=== PATIENT | female | born 1990 | race Caucasian/White ===

== ENCOUNTER 2016-03-22 17:51 | Emergency (ER) | payer OTHER ==
--- NOTE | 2016-03-22 19:03 | REP ---
AP, LATERAL LEFT ELBOW, TWO VIEWS: HISTORY: Trauma. There is no acute fracture or dislocation. The joint space is normal in appearance. IMPRESSION: There is no acute fracture or dislocation. Signed by Sumeet Ye MD 03/22/2016 07:08 P
--- NOTE | 2016-03-22 19:04 | REP ---
LEFT WRIST, FOUR VIEWS: HISTORY: Trauma. There is no acute fracture or dislocation. The joint spaces are normal in appearance. IMPRESSION: There is no acute fracture or dislocation. Signed by Sumeet Ye MD 03/22/2016 07:08 P
[2016-03-22] MEDS ORDERED: IBUPROFEN 600 MG TAB As Ordered ONE (19:14)
--- NOTE | 2016-03-22 19:39 | EDDOCDS ---
Nurse's Notes [facility] Name: Jenni Douglas Age: 26 yrs Sex: Female : 1990 Arrival Date: 03/22/2016 Time: 17:51 Bed 5 Private MD: Other - Complete Info On Cds Diagnosis: Unspecified sprain of left wrist Presentation: 03/22 17:55 Presenting complaint: Patient states: that she fell in the shower tonight and injured ms18 her L wrist. Adult Sepsis Screening: The patient does not have new or worsening altered mentation. Patient's respiratory rate is less than 22. Systolic blood pressure is greater than 100. Patient has a qSOFA score of 0- Negative Sepsis Screen. Suicide/Homicide risk assessment- the patient denies having any suicidal and/or homicidal ideations and does not present with any other emotional, behavioral or mental health complaints. Status: The patient is a dependent. Transition of care: patient was not received from another setting of care. 17:55 Acuity: GEOFF Level 4 ms18 17:55 Method Of Arrival: Walkin/Carried/Asstd ms18 Triage Assessment: 17:59 General: Appears in no apparent distress, comfortable, Behavior is appropriate for age, ms18 cooperative. Pain: Location: palmar aspect of left wrist Pain currently is 8 out of 10 on a pain scale. HIV screening NA for this visit Offered previously. Neurological: Level of Consciousness is awake, alert, obeys commands, Oriented to person, place, time. Respiratory: Airway is patent Respiratory effort is even, unlabored. Derm: Skin is pink, warm & dry. normal, Bruising that is bright red, dark purple, on palmar aspect of left wrist. Musculoskeletal: Range of motion limited in left wrist Swelling present in palmar aspect of left wrist. INSURANCE COMPLIANCE ANALYST: 17:59 LMP 03/05/2016 ms18 Historical: - Allergies: no known allergies; - Home Meds: 1. biotin oral oral daily 2. Vitamin Oral tab 1 tab once daily 3. multivitamin Oral cap daily 4. tramadol 50 mg Oral tab as needed 5. ibuprofen 800 mg Oral tab as needed - PMHx: Endometriosis; - PSHx: Appendectomy; Laparoscopy; Endoscopy, Upper; Endoscopy, Lower; - Social history: Smoking status: Patient states was never smoker of tobacco. No barriers to communication noted, The patient speaks fluent Chinese. - Family history: Not pertinent. - : The pt / caregiver states he / she is not on anticoagulants. Home medication list is obtained from the patient. - Exposure Risk Screening:: None identified. Screenin:25 Screening information is obtained from the patient. Fall risk: No risks identified. cf2 Assistance ADL's: requires no assistance with activities of daily living. Abuse/DV Screen: The patient / caregiver reports he/she is: not in a situation that causes fear, pain or injury. Nutritional screening: No deficits noted. Advance Directives: Further advance directive information is declined. home support is adequate. Assessment: 19:25 Pain: Location: left arm. Neurological: No deficits noted. EENT: No deficits noted. cf2 Musculoskeletal: Reports pain in left arm Pain is 8 out of 10 on a pain scale. Denies numbness. Injury Description: Bruise sustained to left wrist pt fell from standing. Vital Signs: 17:52 BP 133 / 86; Pulse 77; Resp 18 S; Temp 96.2(O); Pulse Ox 100% on R/A; Weight 57.15 kg gr2 (R); Height 5 ft. 2 in. (157.48 cm) (R); Pain 8/10; 17:52 Body Mass Index 23.05 (57.15 kg, 157.48 cm) gr2 Vitals: 17:52 Log In Time: March 22, 2016 at 17:52. gr2 ED Course: 17:52 Patient visited by Angelina Dinh. gr2 17:52 Other - Complete Info On Cds is Private Physician. gr2 17:52 Patient moved to Waiting gr2 17:54 Patient visited by Angelina Dinh. gr2 17:54 Patient moved to Pre RCE gr2 17:56 Triage Initiated ms18 18:08 Rio Strauss FNP is [facility]. ke 18:08 Patient moved to 5 mlb1 18:09 Patient visited by Rio Strauss FNP. ke 18:09 Patient visited by Rio Strauss FNP. ke 18:33 Patient visited by Rio Strauss FNP. ke 18:41 Patient name changed from Asmita\S\\S\Brown\S\ to Ginalynn\S\ \S\Brown. EDMS 18:43 [facility] [place] [facility] Payment Agreement was scanned into [employer] and attached to record. gb 19:07 Elbow, (AP\E\Lat) Returned. EDMS 19:07 Wrist, Complete Returned. EDMS 19:13 Yumiko Danielle,KLAUDIA is Primary Nurse. cf2 19:13 Patient visited by Yumiko Danielle RN. cf2 19:25 Patient visited by Yumiko Danielle RN. cf2 19:25 The patient / caregiver is instructed regarding the plan of care and ED course. Patient cf2 has correct armband on for positive identification. Placed in gown. Bed in low position. Call light in reach. Side rails up X 1. Side rails up X2. Property :Personal belongings accompany Pt. Door closed. Noise minimized. Visitors limited. Lights dimmed. Moved to private room. Cool cloth applied. Ice pack to injury. PO fluids given. Verbal reassurance given. Warm blanket given. wrist splint. 19:25 No IV's were initiated during this patient's visit. No procedures done that require cf2 assistance. 19:38 Michael Gomes DO is Attending Physician. cf2 Administered Medications: 19:13 Drug: Ibuprofen 600 mg [ibuprofen 600 mg tablet (1 tabs)] Route: PO; cf2 19:38 Follow up: Response: Pain is decreased cf2 Order Results: Radiology Order: Wrist, Complete Test: Wrist, Complete REASON FOR EXAMINATION: Trauma; ; LEFT WRIST, FOUR VIEWS:; ; HISTORY: Trauma.; ; There is no acute fracture or dislocation. The joint spaces are normal in; appearance.; ; IMPRESSION:; There is no acute fracture or dislocation.; ; Unreviewed; Radiology Order: Elbow, (AP\E\Lat) Test: Elbow, (AP\E\Lat) REASON FOR EXAMINATION: Trauma; AP, LATERAL LEFT ELBOW, TWO VIEWS:; ; HISTORY: Trauma.; ; There is no acute fracture or dislocation. The joint space is normal in; appearance.; ; IMPRESSION:; There is no acute fracture or dislocation.; ; Unreviewed; Outcome: 18:46 Discharge ordered by Provider. ke 19:25 Discharge Assessment: Patient awake, alert and oriented x 3. No cognitive and/or cf2 functional deficits noted. Patient verbalized understanding of disposition instructions. Patient awake and alert. Oriented to person, place and time. patient administered narcotics - no. The following High Risk Discharge criteria are identified: None. Discharged to home. Condition: good Condition: stable Condition: improved. Discharge instructions given to patient, significant other, Instructed on discharge instructions, follow up and referral plans. medication usage, Demonstrated understanding of instructions, medications, Pt was receptive of discharge instructions/ teaching. Prescriptions given X 1. No special radiology studies were completed. 19:38 Patient left the ED. cf2 Signatures: Dispatcher [employer] EDMS Henny Crocker, Reg Reg gb Rio Strauss, TIRE FINISHER TIRE FINISHER Abrahan Medina RN RN mlb1 Angelina Dinh gr2 Venessa Marcus,RN RN ms18 Yumiko Danielle,RN RN cf2 MTDD
--- NOTE | 2016-03-22 19:39 | EDDOCDS ---
Physician Documentation [facility] Name: Jenni Douglas Age: 26 yrs Sex: Female : 1990 Arrival Date: 03/22/2016 Time: 17:51 Bed 5 Private MD: Other - Complete Info On Cds Disposition: 03/22/16 18:46 Discharged to Home/Self Care. Impression: Unspecified sprain of left wrist. - Condition is Stable. - Discharge Instructions: Elastic Bandage and RICE, Wrist Pain. - Prescriptions for Ibuprofen 600 mg Oral Tablet - take 1 tablet by ORAL route every 6 hours As needed take with food; 30 tablet. - Medication Reconciliation, Work Release Form - 2 day, Local Pharmacy Hours form. - Follow up: Private Physician; When: 4 - 5 days; Reason: Recheck today's complaints, Continuance of care. - Problem is new. - Symptoms are unchanged. Historical: - Allergies: no known allergies; - Home Meds: 1. biotin oral oral daily 2. Vitamin Oral tab 1 tab once daily 3. multivitamin Oral cap daily 4. tramadol 50 mg Oral tab as needed 5. ibuprofen 800 mg Oral tab as needed - PMHx: Endometriosis; - PSHx: Appendectomy; Laparoscopy; Endoscopy, Upper; Endoscopy, Lower; - Social history: Smoking status: Patient states was never smoker of tobacco. No barriers to communication noted, The patient speaks fluent Andorran. - Family history: Not pertinent. - : The pt / caregiver states he / she is not on anticoagulants. Home medication list is obtained from the patient. - Exposure Risk Screening:: None identified. FARM CONTRACTOR: 03/22 17:59 LMP 03/05/2016 ms18 Vital Signs: 17:52 BP 133 / 86; Pulse 77; Resp 18 S; Temp 96.2(O); Pulse Ox 100% on R/A; Weight 57.15 kg / gr2 125.99 lbs (R); Height 5 ft. 2 in. (157.48 cm) (R); Pain 8/10; 17:52 Body Mass Index 23.05 (57.15 kg, 157.48 cm) gr2 MDM: 18:17 Wrist, Complete Ordered. EDMS 18:17 Elbow, (AP\E\Lat) Ordered. EDMS 18:38 Financial registration complete. gb 18:43 [facility] Payment Agreement was scanned into [employer] and attached to record. gb 18:46 Misc. Nursing Order ordered. ke 19:12 Ibuprofen 600 mg PO once ordered. ke Administered Medications: 19:13 Drug: Ibuprofen 600 mg [ibuprofen 600 mg tablet (1 tabs)] Route: PO; cf2 19:38 Follow up: Response: Pain is decreased cf2 Signatures: Dispatcher [employer] EDMS Henny Crocker, Rio Valerio, BRILLIANDEER LOPPER BRILLIANDEER LOPPER Venessa Anderson RN RN ms18 Yumiko Danielle RN RN cf2 The chart was reviewed and I authenticate all verbal orders and agree with the evaluation and treatment provided.Attachments: 18:43 [facility] [place] Payment Agreement gb MTDD
--- NOTE | 2016-03-24 20:39 | EDDOCDS ---
Physician Documentation [facility] Name: Jenni Douglas Age: 26 yrs Sex: Female : 1990 Arrival Date: 03/22/2016 Time: 17:51 Bed 5 Private MD: Other - Complete Info On Cds Disposition: 03/22/16 18:46 Discharged to Home/Self Care. Impression: Unspecified sprain of left wrist. - Condition is Stable. - Discharge Instructions: Elastic Bandage and RICE, Wrist Pain. - Prescriptions for Ibuprofen 600 mg Oral Tablet - take 1 tablet by ORAL route every 6 hours As needed take with food; 30 tablet. - Medication Reconciliation, Work Release Form - 2 day, Local Pharmacy Hours form. - Follow up: Private Physician; When: 4 - 5 days; Reason: Recheck today's complaints, Continuance of care. - Problem is new. - Symptoms are unchanged. Historical: - Allergies: no known allergies; - Home Meds: 1. biotin oral oral daily 2. Vitamin Oral tab 1 tab once daily 3. multivitamin Oral cap daily 4. tramadol 50 mg Oral tab as needed 5. ibuprofen 800 mg Oral tab as needed - PMHx: Endometriosis; - PSHx: Appendectomy; Laparoscopy; Endoscopy, Upper; Endoscopy, Lower; - Social history: Smoking status: Patient states was never smoker of tobacco. No barriers to communication noted, The patient speaks fluent Micronesian. - Family history: Not pertinent. - : The pt / caregiver states he / she is not on anticoagulants. Home medication list is obtained from the patient. - Exposure Risk Screening:: None identified. FOOD HANDLER: 03/22 17:59 LMP 03/05/2016 ms18 Vital Signs: 17:52 BP 133 / 86; Pulse 77; Resp 18 S; Temp 96.2(O); Pulse Ox 100% on R/A; Weight 57.15 kg / gr2 125.99 lbs (R); Height 5 ft. 2 in. (157.48 cm) (R); Pain 8/10; 17:52 Body Mass Index 23.05 (57.15 kg, 157.48 cm) gr2 MDM: 18:17 Wrist, Complete Ordered. EDMS 18:17 Elbow, (AP\E\Lat) Ordered. EDMS 18:38 Financial registration complete. gb 18:43 [facility] Payment Agreement was scanned into [employer] and attached to record. 18:46 Misc. Nursing Order ordered. ke 19:12 Ibuprofen 600 mg PO once ordered. ke 03/23 09:46 T-Sheet-- Draft Copy was scanned into [employer] and attached to record. gb Administered Medications: 03/22 19:13 Drug: Ibuprofen 600 mg [ibuprofen 600 mg tablet (1 tabs)] Route: PO; cf2 19:38 Follow up: Response: Pain is decreased cf2 Signatures: Dispatcher [employer] EDMS Henny Crocker, Reg Reg Rio Strauss, GARMENT FITTER GARMENT FITTER Venessa Anderson RN RN ms18 Yumiko DanielleRN RN cf2 The chart was reviewed and I authenticate all verbal orders and agree with the evaluation and treatment provided.Attachments: 18:43 [facility] Payment Agreement 03/23 09:46 T-Sheet-- Draft Copy Chart Complete MTDD
--- NOTE | 2016-03-24 20:39 | EDDOCDS ---
Nurse's Notes [facility] Name: Jenni Douglas Age: 26 yrs Sex: Female : 1990 Arrival Date: 03/22/2016 Time: 17:51 Bed 5 Private MD: Other - Complete Info On Cds Diagnosis: Unspecified sprain of left wrist Presentation: 03/22 17:55 Presenting complaint: Patient states: that she fell in the shower tonight and injured ms18 her L wrist. Adult Sepsis Screening: The patient does not have new or worsening altered mentation. Patient's respiratory rate is less than 22. Systolic blood pressure is greater than 100. Patient has a qSOFA score of 0- Negative Sepsis Screen. Suicide/Homicide risk assessment- the patient denies having any suicidal and/or homicidal ideations and does not present with any other emotional, behavioral or mental health complaints. Status: The patient is a dependent. Transition of care: patient was not received from another setting of care. 17:55 Acuity: GEOFF Level 4 ms18 17:55 Method Of Arrival: Walkin/Carried/Asstd ms18 Triage Assessment: 17:59 General: Appears in no apparent distress, comfortable, Behavior is appropriate for age, ms18 cooperative. Pain: Location: palmar aspect of left wrist Pain currently is 8 out of 10 on a pain scale. HIV screening NA for this visit Offered previously. Neurological: Level of Consciousness is awake, alert, obeys commands, Oriented to person, place, time. Respiratory: Airway is patent Respiratory effort is even, unlabored. Derm: Skin is pink, warm & dry. normal, Bruising that is bright red, dark purple, on palmar aspect of left wrist. Musculoskeletal: Range of motion limited in left wrist Swelling present in palmar aspect of left wrist. DIRECTOR OF GLOBAL SALES: 17:59 LMP 03/05/2016 ms18 Historical: - Allergies: no known allergies; - Home Meds: 1. biotin oral oral daily 2. Vitamin Oral tab 1 tab once daily 3. multivitamin Oral cap daily 4. tramadol 50 mg Oral tab as needed 5. ibuprofen 800 mg Oral tab as needed - PMHx: Endometriosis; - PSHx: Appendectomy; Laparoscopy; Endoscopy, Upper; Endoscopy, Lower; - Social history: Smoking status: Patient states was never smoker of tobacco. No barriers to communication noted, The patient speaks fluent Lao. - Family history: Not pertinent. - : The pt / caregiver states he / she is not on anticoagulants. Home medication list is obtained from the patient. - Exposure Risk Screening:: None identified. Screenin:25 Screening information is obtained from the patient. Fall risk: No risks identified. cf2 Assistance ADL's: requires no assistance with activities of daily living. Abuse/DV Screen: The patient / caregiver reports he/she is: not in a situation that causes fear, pain or injury. Nutritional screening: No deficits noted. Advance Directives: Further advance directive information is declined. home support is adequate. Assessment: 19:25 Pain: Location: left arm. Neurological: No deficits noted. EENT: No deficits noted. cf2 Musculoskeletal: Reports pain in left arm Pain is 8 out of 10 on a pain scale. Denies numbness. Injury Description: Bruise sustained to left wrist pt fell from standing. Vital Signs: 17:52 BP 133 / 86; Pulse 77; Resp 18 S; Temp 96.2(O); Pulse Ox 100% on R/A; Weight 57.15 kg gr2 (R); Height 5 ft. 2 in. (157.48 cm) (R); Pain 8/10; 17:52 Body Mass Index 23.05 (57.15 kg, 157.48 cm) gr2 Vitals: 17:52 Log In Time: March 22, 2016 at 17:52. gr2 ED Course: 17:52 Patient visited by Angelina Dinh. gr2 17:52 Other - Complete Info On Cds is Private Physician. gr2 17:52 Patient moved to Waiting gr2 17:54 Patient visited by Angelina Dinh. gr2 17:54 Patient moved to Pre RCE gr2 17:56 Triage Initiated ms18 18:08 Rio Strauss FNP is [facility]. ke 18:08 Patient moved to 5 mlb1 18:09 Patient visited by Rio Strauss FNP. ke 18:09 Patient visited by Rio Strauss FNP. ke 18:33 Patient visited by Rio Strauss FNP. ke 18:41 Patient name changed from Asmita\S\\S\Brown\S\ to Ginalynn\S\ \S\Brown. EDMS 18:43 [facility] was scanned into [employer] and attached to record. gb 19:07 Elbow, (AP\E\Lat) Returned. EDMS 19:07 Wrist, Complete Returned. EDMS 19:13 Yumiko Danielle,RN is Primary Nurse. cf2 19:13 Patient visited by Yumiko Danielle,KLAUDIA. cf2 19:25 Patient visited by Yumiko Danielle,KLAUDIA. cf2 19:25 The patient / caregiver is instructed regarding the plan of care and ED course. Patient cf2 has correct armband on for positive identification. Placed in gown. Bed in low position. Call light in reach. Side rails up X 1. Side rails up X2. Property :Personal belongings accompany Pt. Door closed. Noise minimized. Visitors limited. Lights dimmed. Moved to private room. Cool cloth applied. Ice pack to injury. PO fluids given. Verbal reassurance given. Warm blanket given. wrist splint. 19:25 No IV's were initiated during this patient's visit. No procedures done that require cf2 assistance. 19:38 Michael Gomes DO is Attending Physician. cf2 03/23 09:46 T-Sheet-- Draft Copy was scanned into [employer] and attached to record. gb Administered Medications: 03/22 19:13 Drug: Ibuprofen 600 mg [ibuprofen 600 mg tablet (1 tabs)] Route: PO; cf2 19:38 Follow up: Response: Pain is decreased cf2 Order Results: Radiology Order: Wrist, Complete Test: Wrist, Complete REASON FOR EXAMINATION: Trauma; LEFT WRIST, FOUR VIEWS:; ; HISTORY: Trauma.; ; There is no acute fracture or dislocation. The joint spaces are normal in; appearance.; ; IMPRESSION:; ; There is no acute fracture or dislocation.; ; ; Signed by; Sumeet Ye MD 03/22/2016 07:08 P; Radiology Order: Elbow, (AP\E\Lat) Test: Elbow, (AP\E\Lat) REASON FOR EXAMINATION: Trauma; AP, LATERAL LEFT ELBOW, TWO VIEWS:; ; HISTORY: Trauma.; ; There is no acute fracture or dislocation. The joint space is normal in; appearance.; ; IMPRESSION:; ; There is no acute fracture or dislocation.; ; ; Signed by; Sumeet Ye MD 03/22/2016 07:08 P; Outcome: 18:46 Discharge ordered by Provider. pearl 19:25 Discharge Assessment: Patient awake, alert and oriented x 3. No cognitive and/or cf2 functional deficits noted. Patient verbalized understanding of disposition instructions. Patient awake and alert. Oriented to person, place and time. patient administered narcotics - no. The following High Risk Discharge criteria are identified: None. Discharged to home. Condition: good Condition: stable Condition: improved. Discharge instructions given to patient, significant other, Instructed on discharge instructions, follow up and referral plans. medication usage, Demonstrated understanding of instructions, medications, Pt was receptive of discharge instructions/ teaching. Prescriptions given X 1. No special radiology studies were completed. 19:38 Patient left the ED. cf2 Signatures: Dispatcher [employer] EDMS Henny Crocker, Contreras Reg Rio Simms, HEALTH NAVIGATOR HEALTH NAVIGATOR Abrahan Medina, RN RN mlb1 Angelina Dinh gr2 Venessa Marcus,KLAUDIA RN ms18 Yumiko Danielle,RN RN cf2 Chart Complete [facility]
--- NOTE | 2016-03-24 20:39 | EDDOCDS ---
Physician Documentation [facility] Name: Jenni Douglas Age: 26 yrs Sex: Female : 1990 Arrival Date: 03/22/2016 Time: 17:51 Bed 5 Private MD: Other - Complete Info On Cds Disposition: 03/22/16 18:46 Discharged to Home/Self Care. Impression: Unspecified sprain of left wrist. - Condition is Stable. - Discharge Instructions: Elastic Bandage and RICE, Wrist Pain. - Prescriptions for Ibuprofen 600 mg Oral Tablet - take 1 tablet by ORAL route every 6 hours As needed take with food; 30 tablet. - Medication Reconciliation, Work Release Form - 2 day, Local Pharmacy Hours form. - Follow up: Private Physician; When: 4 - 5 days; Reason: Recheck today's complaints, Continuance of care. - Problem is new. - Symptoms are unchanged. Historical: - Allergies: no known allergies; - Home Meds: 1. biotin oral oral daily 2. Vitamin Oral tab 1 tab once daily 3. multivitamin Oral cap daily 4. tramadol 50 mg Oral tab as needed 5. ibuprofen 800 mg Oral tab as needed - PMHx: Endometriosis; - PSHx: Appendectomy; Laparoscopy; Endoscopy, Upper; Endoscopy, Lower; - Social history: Smoking status: Patient states was never smoker of tobacco. No barriers to communication noted, The patient speaks fluent Surinamese. - Family history: Not pertinent. - : The pt / caregiver states he / she is not on anticoagulants. Home medication list is obtained from the patient. - Exposure Risk Screening:: None identified. DRAWSTRING KNOTTER: 03/22 17:59 LMP 03/05/2016 ms18 Vital Signs: 17:52 BP 133 / 86; Pulse 77; Resp 18 S; Temp 96.2(O); Pulse Ox 100% on R/A; Weight 57.15 kg / gr2 125.99 lbs (R); Height 5 ft. 2 in. (157.48 cm) (R); Pain 8/10; 17:52 Body Mass Index 23.05 (57.15 kg, 157.48 cm) gr2 MDM: 18:17 Wrist, Complete Ordered. EDMS 18:17 Elbow, (AP\E\Lat) Ordered. EDMS 18:38 Financial registration complete. gb 18:43 [facility] Payment Agreement was scanned into [employer] and attached to record. 18:46 Misc. Nursing Order ordered. ke 19:12 Ibuprofen 600 mg PO once ordered. ke 03/23 09:46 T-Sheet-- Draft Copy was scanned into [employer] and attached to record. gb Administered Medications: 03/22 19:13 Drug: Ibuprofen 600 mg [ibuprofen 600 mg tablet (1 tabs)] Route: PO; cf2 19:38 Follow up: Response: Pain is decreased cf2 Signatures: Dispatcher [employer] EDMS Henny Crocker, Reg Reg Rio Strauss, DIGITAL PROGRAM MANAGER DIGITAL PROGRAM MANAGER Venessa Anderson RN RN ms18 Yumiko DanielleRN RN cf2 The chart was reviewed and I authenticate all verbal orders and agree with the evaluation and treatment provided.Attachments: 18:43 [facility] Payment Agreement 03/23 09:46 T-Sheet-- Draft Copy Chart Complete MTDD
== END 2016-03-22 19:38 | disposition home or self-care (01) ==
LOC: M ED 17:51
DX: S63.502A Unspecified sprain of left wrist, initial encounter (principal); W19.XXXA Unspecified fall, initial encounter; Y92.019 Unspecified place in single-family (private) house as the place of occurrence of the external cause; Y93.9 Activity, unspecified; Y99.9 Unspecified external cause status; Z79.899 Other long term (current) drug therapy

== ENCOUNTER 2016-04-17 10:31 | Emergency (ER) | payer OTHER ==
[~2016-04-17] VITALS: Ht 157.5 cm; Wt 58.1 kg
[2016-04-17] MEDS ORDERED: TRAM1CAP15 PO (11:10)
[2016-04-17] MEDS ORDERED: IBUP600T26 PO (11:10)
[2016-04-17] MEDS ORDERED: DOXY200C PO (11:11)
--- NOTE | 2016-04-17 12:36 | ECGEPIP ---
Stationary ECG Study [facility] - ED Test Date: 2016-04-17 Pat Name: OLIVERIO SALDAÑA Department: Room: - Gender: F Fashion Merchandiser: rn : 1990 Requested By: Matt Bryant Order Number: [id number] Reading MD: Lynne Tobias Measurements Intervals [place] Rate: 59 P: 51 VT: 165 QRS: 76 QRSD: 103 T: 42 QT: 409 QTc: 406 Interpretive Statements SINUS BRADYCARDIA WITH SINUS ARRHYTHMIA INCOMPLETE RIGHT BUNDLE BRANCH BLOCK NO PRIOR FOR COMPARISON Electronically Signed On 04-17-2016 12:35:44 EDT by Lynne Tobias
[2016-04-17] MEDS ORDERED: NS 1,000 ML IV ONE (13:00)
[2016-04-17] MEDS ORDERED: ONDANSETRON 4MG/2ML VIAL (J2405) IV ONE (13:00)
[2016-04-17] MEDS ORDERED: KETOROLAC 30 MG/ML VIAL (J1885) IV ONE (13:00)
[2016-04-17 13:40] LABS: MEAN CORPUSCULAR HEMOGLOBIN 29.1 pg (27.0-33.0); RED CELL DISTRIBUTION WIDTH 12.5 % (11.5-14.5); WHITE BLOOD COUNT 3.8 K/mm3 (4.0-10.0)
[2016-04-17 13:51] LABS: ALBUMIN 4.2 GM/DL (3.2-5.2); ALBUMIN/GLOBULIN RATIO 1.35 (1.00-1.93); ALKALINE PHOSPHATASE 72 U/L (45-117); ALT/SGPT 20 U/L (12-78); ANION GAP 8 MEQ/L (8-16); AST/SGOT 20 U/L (15-37); BILIRUBIN,TOTAL 0.3 MG/DL (0.2-1.0); BLOOD UREA NITROGEN 11 MG/DL (7-18); CALCIUM LEVEL 9.7 MG/DL (8.5-10.1); CARBON DIOXIDE LEVEL 27 MEQ/L (21-32); CHLORIDE LEVEL 105 MEQ/L (98-107); CREATININE FOR GFR 0.74 MG/DL (0.55-1.02); GLOMERULAR FILTRATION RATE > 60.0 (>60); GLUCOSE, FASTING 95 MG/DL (70-105); POTASSIUM SERUM 3.9 MEQ/L (3.5-5.1); SODIUM LEVEL 140 MEQ/L (136-145); TOTAL PROTEIN 7.3 GM/DL (6.4-8.2)
[2016-04-17] MEDS ORDERED: ZOFR4TAB3 PO (14:13)
[2016-04-17] MEDS ORDERED: AUGM875T27 PO (14:14)
[2016-04-17 14:29] VITALS: BP 131/72
[2016-04-17] MEDS ORDERED: AUGMENTIN 875 MG TAB PO ONE (14:30)
== END 2016-04-17 14:50 | disposition home or self-care (01) ==
LOC: M ED 11:36
DX: J01.90 Acute sinusitis, unspecified (principal); R11.2 Nausea with vomiting, unspecified; R00.2 Palpitations; N94.6 Dysmenorrhea, unspecified; N80.9 Endometriosis, unspecified
CPT/HCPCS: 36415; 80053; 81001; 81025; 82550; 82553; 83690; 85027; 87086; 93005; 96374; 96375; 99284; J1885; J2405

== ENCOUNTER 2016-04-26 12:07 | Emergency (ER) | payer OTHER ==
[~2016-04-26] VITALS: Ht 157.5 cm; Wt 57.2 kg
[~2016-04-26 12:07] MED LIST: AUGM875T27 PO; DOXY200C PO; IBUP600T26 PO; TRAM1CAP15 PO; ZOFR4TAB3 PO
[2016-04-26 12:08] VITALS: BP 116/82
[2016-04-26] MEDS ORDERED: LIDOCAINE 1% SDV INJ 30 ML VIAL SC SCH (13:30)
[2016-04-26] MEDS ORDERED: LIDOCAINE 1% MDV 20ML VIAL As Ordered ONE (13:41)
== END 2016-04-26 14:10 | disposition home or self-care (01) ==
LOC: M ED 12:52
DX: S61.432A Puncture wound without foreign body of left hand, initial encounter (principal); W26.0XXA Contact with knife, initial encounter; Y92.234 Operating room of hospital as the place of occurrence of the external cause; Y93.89 Activity, other specified; Y99.0 Civilian activity done for income or pay

== ENCOUNTER 2016-05-26 14:30 | Emergency (ER) | payer OTHER ==
[~2016-05-26] VITALS: Ht 157.5 cm; Wt 57.2 kg
[2016-05-26 14:31] VITALS: BP 133/82
[2016-05-26] MEDS ORDERED: PRENTAB55 PO (14:57)
[2016-05-26] MEDS ORDERED: NS 1,000 ML IV ONE (15:15)
[2016-05-26 15:34] LABS: BASO % 0.5 % (0.0-1.0); EOS # 0.1 K/mm3 (0.0-0.50); LARGE UNSTAINED CELL # 0.1 K/mm3 (0.0-0.4); LARGE UNSTAINED CELL % 1.3 % (0.0-4.0); LYMPH # 2.4 K/mm3 (1.5-6.5); LYMPH % 33.4 % (24.0-44.0); MEAN CORPUSCULAR HEMOGLOBIN 30.5 pg (27.0-33.0); MEAN CORPUSCULAR HGB CONC 33.2 g/dl (32.0-36.5); MEAN CORPUSCULAR VOLUME 91.8 fl (80.0-96.0); MONO # 0.4 K/mm3 (0.0-0.8); MONO % 5.5 % (0.0-5.0); NEUTROPHILS % 58.4 % (36.0-66.0); PLATELET COUNT, AUTOMATED 267 k/mm3 (150-450); RED CELL DISTRIBUTION WIDTH 12.9 % (11.5-14.5); WHITE BLOOD COUNT 6.9 K/mm3 (4.0-10.0)
[2016-05-26] MEDS ORDERED: MORPHINE 2 MG/ML 1ML SYRINGE IV ONE (16:15)
--- NOTE | 2016-05-26 16:24 | REP ---
Obstetric sonography: History: Vaginal bleeding. Findings: Transabdominal and transvaginal scanning are performed. There is a distinct cystic structure in the endometrium with poorly echogenic margin. This may be a gestational sac. There is a questionable yolk sac within this. No embryonic pole is seen. By mean sac size diameter this would correspond with a 1-mero-3-day gestational age estimate. The sac measures 6.2 x 6.6 x 2.3 cm. No free fluid is seen. There is a 2.5 x 2.5 x 2.3 cm cystic area in the left ovary consistent with corpus luteum. Left ovary measures 4.5 x 3.2 x 3.7 cm. Left ovary Doppler flow is normal, resistive index 0.56. Right ovary measures 2.9 x 1.7 x 1.6 cm and is normal appearance. Its resistive index by Doppler normal 0.64. No free fluid. Impression: Sac-like structure in the uterine endometrium with no embryonic pole visible, questionable yolk sac. 5-week size. viability cannot be confirmed. Ectopic cannot be completely excluded. Clinical and possibly sonographic followup should be considered. Signed by Addi Whitten MD 05/26/2016 05:02 P
== END 2016-05-26 17:28 | disposition home or self-care (01) ==
LOC: M ED 15:12
DX: O20.0 Threatened abortion (principal); O99.351 Diseases of the nervous system complicating pregnancy, first trimester; G89.29 Other chronic pain; R10.2 Pelvic and perineal pain; Z79.899 Other long term (current) drug therapy; Z3A.01 Less than 8 weeks gestation of pregnancy

== ENCOUNTER 2016-05-29 11:12 | Emergency (ER) | payer OTHER ==
[~2016-05-29] VITALS: Ht 157.5 cm; Wt 57.2 kg
[~2016-05-29 11:12] MED LIST changes: +PRENTAB55 PO
[2016-05-29 11:13] VITALS: BP 123/80
[2016-05-29] MEDS ORDERED: TYLE500T78 PO (11:23)
== END 2016-05-29 12:55 | disposition home or self-care (01) ==
LOC: M ED 11:41
DX: O26.891 Other specified pregnancy related conditions, first trimester (principal); R10.2 Pelvic and perineal pain; N80.9 Endometriosis, unspecified; O09.291 Supervision of pregnancy with other poor reproductive or obstetric history, first trimester; Z3A.00 Weeks of gestation of pregnancy not specified

== ENCOUNTER 2016-05-31 10:54 | Emergency (ER) | payer OTHER ==
[~2016-05-31] VITALS: Ht 157.5 cm; Wt 57.2 kg
[~2016-05-31 10:54] MED LIST changes: +TYLE500T78 PO
[2016-05-31] MEDS ORDERED: ACETAMINOPHEN 325 MG TAB PO ONE (12:00)
[2016-05-31 12:13] LABS: MEAN CORPUSCULAR HEMOGLOBIN 30.4 pg (27.0-33.0); MEAN CORPUSCULAR VOLUME 92.1 fl (80.0-96.0); RED CELL DISTRIBUTION WIDTH 12.7 % (11.5-14.5); WHITE BLOOD COUNT 5.3 K/mm3 (4.0-10.0)
[2016-05-31 12:36] LABS: ALBUMIN 3.7 GM/DL (3.2-5.2); ALBUMIN/GLOBULIN RATIO 1.16 (1.00-1.93); ALKALINE PHOSPHATASE 69 U/L (45-117); ALT/SGPT 19 U/L (12-78); ANION GAP 5 MEQ/L (8-16); AST/SGOT 16 U/L (15-37); BILIRUBIN,DIRECT 0.1 MG/DL (0.0-0.2); BILIRUBIN,TOTAL 0.6 MG/DL (0.2-1.0); BLOOD UREA NITROGEN 9 MG/DL (7-18); CARBON DIOXIDE LEVEL 28 MEQ/L (21-32); CHLORIDE LEVEL 104 MEQ/L (98-107); CREATININE FOR GFR 0.65 MG/DL (0.55-1.02); GLOMERULAR FILTRATION RATE > 60.0 (>60); GLUCOSE, FASTING 85 MG/DL (70-105); HCG, SERUM QUANTITATIVE 18691 MIU/ML; POTASSIUM SERUM 4.3 MEQ/L (3.5-5.1); SODIUM LEVEL 137 MEQ/L (136-145); TOTAL PROTEIN 6.9 GM/DL (6.4-8.2)
--- NOTE | 2016-05-31 13:20 | REP ---
FIRST TRIMESTER ULTRASOUND: Real-time sonographic evaluation of the gravid uterus is performed utilized transabdominal and endovaginal technique. Uterus measures 8.4 x 4.6 x 6.9 cm. There is a gestational sac in the endometrial canal with a mean sac diameter of 14 mm. A yolk sac is seen within this gestational sac. Estimated gestational age is 6 weeks 2 days. No pole is seen. There is no subchorionic hemorrhage. Right ovary measures 2.9 x 1.0 x 2.2 cm and left ovary 4.5 x 2.3 x 2.3 cm. Cystic structure of the left ovary probably represents a corpus luteum 1.6 cm in diameter. There is no evidence of ovarian torsion with blood flow seen in each ovary with duplex Doppler evaluation. Mild free fluid is seen. IMPRESSION: Early intrauterine gestation 6 weeks 2 days gestational age. No pole is seen. A yolk sac is seen with an intrauterine gestational sac. Suggest followup ultrasound in 1 week to document liability. Left corpus luteum with mild free fluid. No torsion. Signed by Murray Dunham MD 06/01/2016 04:42 P
[2016-05-31 14:18] VITALS: BP 117/72
== END 2016-05-31 14:20 | disposition home or self-care (01) ==
LOC: M ED 13:32
DX: O34.81 Maternal care for other abnormalities of pelvic organs, first trimester (principal); N83.12 Corpus luteum cyst of left ovary; O26.891 Other specified pregnancy related conditions, first trimester; N80.9 Endometriosis, unspecified; Z3A.01 Less than 8 weeks gestation of pregnancy; O99.331 Smoking (tobacco) complicating pregnancy, first trimester; F17.210 Nicotine dependence, cigarettes, uncomplicated

== ENCOUNTER → 2016-06-01 | Emergency (ER) | payer OTHER ==
[~2016-06-01] VITALS: Ht 157.5 cm; Wt 57.2 kg
[2016-06-01 10:47] VITALS: BP 122/79
== END | disposition home or self-care (01) ==
LOC: M ED 13:31
DX: Z00.00 Encounter for general adult medical examination without abnormal findings (principal); Z53.21 Procedure and treatment not carried out due to patient leaving prior to being seen by health care provider
CPT/HCPCS: 36415; 86850; 86901; 99281; J2790

== ENCOUNTER → 2016-06-05 | Outpatient (CLI) | payer OTHER ==
--- NOTE | 2016-06-06 03:47 | REP ---
Clinical: Dating and viability. Technique: Transabdominal and transvaginal first trimester examination with color Doppler evaluation. Findings: Single live early intrauterine is appreciated. Gestational sac with yolk sac and pole identified. [place]-rump length of 5 mm corresponds to 6 weeks 2 days gestational age with estimated date of delivery 01/27/2017. heart rate equals 113 beats per minute. A very small subchorionic hemorrhage along the left lateral aspect of the gestational sac is suggested. Impression: Single live early intrauterine at 6 weeks 2 days gestational age. Complete anatomical assessment should be performed and 19-20 weeks. Mild bradycardia. Small subchorionic hemorrhage suggested. Signed by Mansoor Lopez MD 06/06/2016 03:38 A
== END ==
LOC: M RAD 10:30
PROVIDERS: ATTEND Obstetrics & Gynecology
DX: Z36 Encounter for antenatal screening of mother (principal); Z3A.01 Less than 8 weeks gestation of pregnancy; O76 Abnormality in fetal heart rate and rhythm complicating labor and delivery

== ENCOUNTER → 2016-07-17 | Outpatient (CLI) | payer OTHER ==
[2016-07-17 19:26] LABS: BASO % 0.4 % (0.0-1.0); EOS # 0.1 K/mm3 (0.0-0.50); EOS % 0.9 % (0.0-3.0); LARGE UNSTAINED CELL # 0.1 K/mm3 (0.0-0.4); LARGE UNSTAINED CELL % 1.1 % (0.0-4.0); LYMPH # 2.1 K/mm3 (1.5-6.5); LYMPH % 25.6 % (24.0-44.0); MEAN CORPUSCULAR HGB CONC 34.5 g/dl (32.0-36.5); MEAN CORPUSCULAR VOLUME 92.8 fl (80.0-96.0); MONO # 0.3 K/mm3 (0.0-0.8); MONO % 4.1 % (0.0-5.0); NEUTROPHILS # 5.3 K/mm3 (1.8-7.7); PLATELET COUNT, AUTOMATED 214 k/mm3 (150-450); RED CELL DISTRIBUTION WIDTH 13.2 % (11.5-14.5); WHITE BLOOD COUNT 7.8 K/mm3 (4.0-10.0)
[2016-07-19 09:40] LABS: HBsAg Prenatal NEGATIVE (NEGATIVE)
== END ==
LOC: M LRY 14:22
PROVIDERS: ATTEND Specialist
DX: Z34.81 Encounter for supervision of other normal pregnancy, first trimester (principal); Z36 Encounter for antenatal screening of mother; Z3A.00 Weeks of gestation of pregnancy not specified

== ENCOUNTER → 2016-08-16 | Outpatient (REF) | payer OTHER ==
[~2016-08-16] MED LIST changes: -AUGM875T27 PO; +AUGM875T28 PO; +IBUP-1022 PO; -IBUP600T26 PO
== END ==
LOC: M LAB REF 13:06
PROVIDERS: ATTEND Advanced Practice Midwife
DX: Z34.81 Encounter for supervision of other normal pregnancy, first trimester (principal); Z36 Encounter for antenatal screening of mother; Z3A.00 Weeks of gestation of pregnancy not specified

== ENCOUNTER → 2016-09-22 | Outpatient (CLI) | payer OTHER ==
--- NOTE | 2016-09-22 09:26 | REP ---
OB ULTRASOUND: Real-time sonographic evaluation of the gravid uterus performed. There is a single living intrauterine gestation, estimated gestational age 21 weeks 6 days based on the first ultrasound, EDC 01/27/2017. Today's measurements indicate appropriate growth. BPD 50 mm 21 weeks 1 day, 32nd percentile HC 201 mm 22 weeks 2 days, 63rd percentile AC 166 mm 21 weeks 4 days, 46th percentile FL 35 mm 21 weeks 0 days, 31st percentile HC/AC ratio 1.21 within normal range. Estimated weight 424 grams, 34th percentile. Cervix closed and measures 4.9 cm in length. heart rate 160 beats per minute. SEEN/GROSSLY UNREMARKABLE Lateral ventricles Yes Posterior fossa Yes Upper lip Yes Four-chamber heart Yes LVOT No RVOT No Stomach Yes Cord insertion Yes Three vessel cord Yes Kidneys Yes Bladder Yes Spine Yes position vertex. Placenta anterior and grade 1 with no previa or abruption. Amniotic fluid within normal limits. Signed by Murray Dunham MD 09/22/2016 09:49 A
== END ==
LOC: M RAD 07:34
PROVIDERS: ATTEND Advanced Practice Midwife
DX: Z34.82 Encounter for supervision of other normal pregnancy, second trimester (principal); Z36 Encounter for antenatal screening of mother; Z3A.21 21 weeks gestation of pregnancy

== ENCOUNTER → 2016-10-23 | Outpatient (CLI) | payer OTHER ==
[~2016-10-23] MED LIST changes: +VENTAER
[2016-10-23 15:35] LABS: BASO % 0.3 % (0.0-1.0); EOS % 0.6 % (0.0-3.0); LARGE UNSTAINED CELL # 0.1 K/mm3 (0.0-0.4); LYMPH # 1.7 K/mm3 (1.5-6.5); LYMPH % 24.1 % (24.0-44.0); MEAN CORPUSCULAR HEMOGLOBIN 33.9 pg (27.0-33.0); MEAN CORPUSCULAR HGB CONC 35.3 g/dl (32.0-36.5); MONO # 0.3 K/mm3 (0.0-0.8); MONO % 4.3 % (0.0-5.0); NEUTROPHILS # 4.8 K/mm3 (1.8-7.7); NEUTROPHILS % 69.7 % (36.0-66.0); PLATELET COUNT, AUTOMATED 191 k/mm3 (150-450); RED CELL DISTRIBUTION WIDTH 12.6 % (11.5-14.5); WHITE BLOOD COUNT 6.8 K/mm3 (4.0-10.0)
--- NOTE | 2016-10-23 16:40 | REP ---
OB ULTRASOUND: Real-time sonographic evaluation of the gravid uterus is performed. There is a single living intrauterine gestation with estimated gestational age of 26 weeks 2 days based on the first ultrasound EDC 01/27/2017. Today's measurements indicate appropriate growth. BPD 64 mm = 26 weeks 0 days, at the 46th percentile. HC 241 mm = 26 weeks 1 day, at the 49th percentile. AC 215 mm = 26 weeks 0 days, at the 45th percentile. Femur length 47 mm = 25 weeks 4 days, at the 34th percentile. HC/AC ratio 1.12 within normal range. Estimated weight 860 grams 33rd percentile. Cervix is closed measures 3.3 cm in length. heart rate 158 beats per minute. SEEN/GROSSLY UNREMARKABLE Lateral ventricles Yes Posterior fossa Yes Upper lip Yes Four-chamber heart Yes LVOT Yes RVOT Yes Stomach Yes Cord insertion Yes Three vessel cord Yes Kidneys Yes Bladder Yes Spine Yes position: Vertex. Placenta: Anterior and grade 0 with no previa or abruption. Amniotic fluid: Within normal limits. Signed by Murray Dunham MD 10/23/2016 05:12 P
== END ==
LOC: M LAB 13:34
PROVIDERS: ATTEND Specialist
DX: Z36 Encounter for antenatal screening of mother (principal); Z3A.26 26 weeks gestation of pregnancy
CPT/HCPCS: 36415; 76816; 82950; 85025; 86850; 86900; 86901; J2790

== ENCOUNTER → 2016-11-10 | Outpatient (CLI) | payer OTHER ==
[~2016-11-10] VITALS: Ht 157.5 cm; Wt 68.0 kg
[2016-11-10 22:58] VITALS: BP 115/90
== END ==
LOC: M LDO 22:45
PROVIDERS: ATTEND Specialist
DX: O36.8130 Decreased fetal movements, third trimester, not applicable or unspecified (principal); Z3A.29 29 weeks gestation of pregnancy; W19.XXXA Unspecified fall, initial encounter; O9A.313 Physical abuse complicating pregnancy, third trimester; X58.XXXA Exposure to other specified factors, initial encounter; Y93.9 Activity, unspecified; Y92.9 Unspecified place or not applicable; Y99.8 Other external cause status

== ENCOUNTER 2016-12-17 12:39 | Emergency (ER) | payer OTHER ==
[~2016-12-17] VITALS: Ht 157.5 cm; Wt 71.8 kg
[~2016-12-17 12:39] MED LIST changes: -VENTAER
[2016-12-17 12:40] VITALS: BP 139/95
[2016-12-17] MEDS ORDERED: VENTAER (12:48)
== END 2016-12-17 14:50 | disposition left against medical advice (07) ==
LOC: M ED 12:39
DX: Z53.21 Procedure and treatment not carried out due to patient leaving prior to being seen by health care provider (principal)

== ENCOUNTER → 2016-12-17 | Outpatient (CLI) | payer OTHER ==
--- NOTE | 2016-12-17 14:29 | REP ---
Chest two views HISTORY: Pneumonia Comparison: None The lungs are clear. The heart is normal in size. The pulmonary vasculature is normal in appearance. The bony structure is intact. IMPRESSION: No acute disease. Signed by Sumeet Ye MD 12/17/2016 02:19 P
== END ==
LOC: M RAD 13:57
PROVIDERS: ATTEND Specialist
DX: J15.8 Pneumonia due to other specified bacteria (principal)

== ENCOUNTER → 2016-12-26 | Outpatient (REF) | payer OTHER ==
[~2016-12-26] MED LIST changes: +TUSSSUS6 PO; +VENTAER
== END ==
LOC: M LAB REF 16:52
PROVIDERS: ATTEND Obstetrics & Gynecology
DX: Z34.83 Encounter for supervision of other normal pregnancy, third trimester (principal); Z36.85 Encounter for antenatal screening for Streptococcus B

== ENCOUNTER 2017-01-12 10:13 | Outpatient (CLI) | payer OTHER ==
[~2017-01-12] VITALS: Ht 157.5 cm; Wt 76.6 kg
[2017-01-12 11:01] VITALS: BP 121/86
--- NOTE | 2017-01-12 11:43 | IPNPDOC ---
Text Note Date of Service The patient was seen on 01/12/17. NOTE PROGRESS NOTE: S: Asmita is a 26yo 38 0/7 weeks gestation here on L and D with complaints of lower mid position back pain that kept her awake last night. Patient tried Tylenol last night and this morning. 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 Patient denies any contractions, leaking fluid or bleeding. Fetus is active. O: Patient appears in NAD, asking questions, smiling and talking. VS: BP 121/86, HR 78. R 18, T98.5 FHR: 160 + accels to 180, moderate variability, - decels CTX: none ABD: non tender, gravid, cephalic by [place] SVE: Very Posterior, unable to assess due to maternal guarding. A: 26 yo 38 0/7 weeks gestation, Category 1 tracing, Lower back pain, most likely OP presentation P: Patient d/c home for rest of the day. Note given to be off work for today. Encouraged to rest and hydrate, educated on position changes for rotating fetus. Patient is scheduled for induction next week. Reviewed use for evening primrose for cervical ripening. Verna Black CNM Jan 12, 2017 11:43
== END 2017-01-12 13:35 | disposition home or self-care (01) ==
LOC: M LDO 10:13
PROVIDERS: ATTEND Advanced Practice Midwife
DX: O47.1 False labor at or after 37 completed weeks of gestation (principal); Z3A.38 38 weeks gestation of pregnancy; M54.9 Dorsalgia, unspecified; O26.893 Other specified pregnancy related conditions, third trimester

== ENCOUNTER 2017-01-19 06:00 | Inpatient (IN) | payer OTHER ==
[~2017-01-19] VITALS: Ht 157.5 cm; Wt 79.7 kg
[2017-01-19] VITALS (31 sets, daily range): BP systolic 106–143; BP diastolic 59–91
[2017-01-19] MEDS ORDERED: LACTATED RINGER'S 1000 ML IV STA (07:08)
[2017-01-19 07:20] LABS: MEAN CORPUSCULAR HEMOGLOBIN 32.6 pg (27.0-33.0); MEAN CORPUSCULAR HGB CONC 34.2 g/dl (32.0-36.5); MEAN CORPUSCULAR VOLUME 95.1 fl (80.0-96.0); PLATELET COUNT, AUTOMATED 174 10^3/uL (150-450); RED CELL DISTRIBUTION WIDTH 12.9 % (11.5-14.5); WHITE BLOOD COUNT 7.2 10^3/uL (4.0-10.0)
[2017-01-19] MEDS: miSOPROStol 50 MCG 1/2 TAB (S0191) PO SCH ×3 (07:31→16:34)
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
[2017-01-19] MEDS ORDERED: FENTANYL 2MCG/ML ROPIVACAINE 0.2% IN 0.9% NACL 200ML IVBAG As Ordered ONE (15:06)
[2017-01-19] MEDS ORDERED: OXYTOCIN 30 UNITS IN 0.9% NaCl 500ML IV BAG (J2590) As Ordered ONE (15:10)
[2017-01-19] MEDS ORDERED: LACTATED RINGER'S 1000 ML IV ONE (15:15)
[2017-01-19] MEDS ORDERED: EPIDURAL COMMENT XX SCH (16:00)
[2017-01-19] MEDS ORDERED: FENTANYL/ROPIVACAINE/NACL BAG 200 ML EPIDURAL SCH (16:00)
[2017-01-19] MEDS ORDERED: ePHEDrine SULFATE 25 MG/5 ML(5MG/ML) SYRINGE IV PRN (16:00)
[2017-01-19] MEDS ORDERED: REFRIGERATOR IV KEYS XX PRN (16:00)
[2017-01-19] MEDS ORDERED: ONDANSETRON 4MG/2ML VIAL (J2405) IV PRN (16:00)
[2017-01-19] MEDS ORDERED: EPIDURAL/PCA KEYS XX PRN (16:00)
[2017-01-19] MEDS ORDERED: LACTATED RINGER'S 1000 ML IV PRN (16:00)
[2017-01-19] MEDS ORDERED: diphenhydrAMINE INJ 50MG/ML VIAL (J1200) IV PRN (16:00)
[2017-01-19] MEDS ORDERED: NALOXONE INJ 0.4 MG/1 ML VIAL (J2310) IV PRN (16:00)
[2017-01-19] MEDS ORDERED: LR 1,000 ML IV SCH (16:45)
[2017-01-19] MEDS ORDERED: OXYTOCIN DRIP 30 UNITS in APPROPRIATE DILUENT 1 EA IV SCH (18:30)
[2017-01-20] VITALS (7 sets, daily range): BP systolic 115–139; BP diastolic 68–85
[2017-01-20] MEDS ORDERED: ceFAZolin 2 GM/D5W 50 ML IV BAG (J0690 PER 500MG) As Ordered ONE (03:30)
[2017-01-20] MEDS ORDERED: BICITRA 30ML SOLN UDC As Ordered ONE (03:39)
[2017-01-20] MEDS ORDERED: BICITRA 30ML SOLN UDC PO ONE (03:45)
[2017-01-20] MEDS ORDERED: ONDANSETRON 4MG/2ML VIAL (J2405) As Ordered ONE (04:05)
[2017-01-20] MEDS ORDERED: LIDOCAINE 2% W/EPIN INJ 20ML **PRES FREE As Ordered ONE (04:05)
[2017-01-20] MEDS ORDERED: OXYTOCIN INJ 10 UNITS/ML VIAL (J2590) As Ordered ONE (04:06)
[2017-01-20] MEDS ORDERED: NALOXONE INJ 0.4 MG/1 ML VIAL (J2310) IV PRN ×2 (04:15)
[2017-01-20] MEDS ORDERED: NALBUPHINE HCL 10 MG/ML AMP (J2300) IV PRN (04:15)
[2017-01-20] MEDS ORDERED: ONDANSETRON 4MG/2ML VIAL (J2405) IV PRN ×3 (04:15→05:45)
[2017-01-20] MEDS ORDERED: METOCLOPRAMIDE INJ 10MG/2ML VIAL (J2765) IV PRN (04:15)
[2017-01-20] MEDS ORDERED: MORPHINE PRES-FREE INJ 10 MG/10 ML VIAL (J2274) As Ordered ONE (04:42)
[2017-01-20] MEDS ORDERED: KETOROLAC 60 MG/2 ML VIAL (J1885) As Ordered ONE (04:46)
[2017-01-20 04:55] LABS: CORD GAS ABE A -7.7; CORD GAS ABE V -10.1; CORD GAS HCO3 V 20.3 MEQ/L; CORD GAS O2 SAT A 43.3 %; CORD GAS O2 SAT V 21.5 %; CORD GAS PCO2 A 55.1 mmHg; CORD GAS PCO2 V 64.7 mmHg; CORD GAS PH A 7.198 UNITS; CORD GAS PH V 7.114 UNITS; CORD GAS PO2 A 20.9 mmHg; CORD GAS PO2 V 14.6 mmHg; CORD GAS SBC A 17.2 MEQ/L; CORD GAS SBC V 15.1 MEQ/L; CORD GAS TCO2 A 22.6 MEQ/L; CORD GAS TCO2 V 22.3 MEQ/L
[2017-01-20] MEDS ORDERED: KETOROLAC 30 MG/ML VIAL (J1885) IV PRN (05:45)
[2017-01-20] MEDS ORDERED: ANUSOL HC CREAM 30GM TOP PRN (05:45)
[2017-01-20] MEDS ORDERED: OXYTOCIN DRIP 30 UNITS in APPROPRIATE DILUENT 1 EA IV ONE (05:45)
[2017-01-20] MEDS ORDERED: PERCOCET 5MG/325MG TAB PO PRN (05:45)
[2017-01-20] MEDS ORDERED: MEPERIDINE INJ 25 MG/ML VIAL (J2175) IV PRN (05:45)
[2017-01-20] MEDS ORDERED: MEASLES,MUMPS,RUBELLA VACCINE INJ (MMR-II) (90707) SC SCH (05:45)
[2017-01-20] MEDS ORDERED: RHOGAM 300 MCG (1500 IU) INJ (J2790) IM SCH (05:45)
[2017-01-20] MEDS ORDERED: LR 1,000 ML IV SCH (05:45)
[2017-01-20] MEDS ORDERED: fentaNYL 100 MCG/2 ML INJECTION (J3010) IV PRN (05:45)
[2017-01-20] MEDS ORDERED: MOM 30ML SUSPENSION UDC PO PRN (05:45)
[2017-01-20] MEDS ORDERED: OXYTOCIN 30 UNITS IN 0.9% NaCl 500ML IV BAG (J2590) As Ordered ONE (05:50)
[2017-01-20] MEDS ORDERED: IBUP1TAB7 PO (06:27)
[2017-01-20] MEDS ORDERED: COLA100C5 PO (06:28)
[2017-01-20] MEDS ORDERED: PERCOCET PO (06:29)
[2017-01-20] MEDS ORDERED: AMPICILLIN SOD/SULBACTAM SOD 3 GM in D5W MINI-BAG PLUS 100 ML IV ONE (07:30)
[2017-01-20] MEDS: PERCOCET 5MG/325MG TAB PO PRN ×2 (07:59→19:51)
[2017-01-20] MEDS: PRENATAL VITAMINS CHEWABLE TABLET PO SCH (08:44)
--- NOTE | 2017-01-20 09:46 | RO ---
DATE OF PROCEDURE: 01/19/2017 PREPROCEDURE DIAGNOSIS: Arrest of descent. POSTPROCEDURE DIAGNOSIS: Arrest of descent. PROCEDURE PERFORMED: Primary low transverse section. SURGEON: Abril Lamb MD ESTATE PLANNER: Murray Tesfaye MD ANESTHESIA: Spinal. ESTIMATED BLOOD LOSS: 400 mL. INTRAVENOUS FLUIDS: 900 mL of lactated Ringer's solution. URINE OUTPUT: 25 mL. PREOPERATIVE ANTIBIOTICS: 2 grams of Ancef. OPERATIVE FINDINGS: Live born male . scores 7 and 9. Weight was 6 pounds 3 ounces, 2820 grams CORD GAS: 7.19, 7.11, base excess -7.7 and 10.1, respectively. SPECIMENS: Cord blood and cord gases. DESCRIPTION OF PROCEDURE: After informed consent was obtained and written consent was reviewed, the patient was brought to the operating room where spinal anesthesia was placed. She was then placed in the lithotomy position with a left lateral tilt. A Mcduffie catheter was previously placed and set to gravity. She was then prepped and draped in the normal sterile fashion. A time-out in the operating room was then performed, identifying the patient, procedure to be performed, as well as drug allergies. Anesthesia was tested and deemed to be adequate. A Pfannenstiel skin incision was then made and carried down to the underlying rectus fascia. The fascia was scored and this incision was extended bilaterally. The fascia was then dissected off the underlying rectus muscles both superiorly and inferiorly. The rectus muscles were in the midline. The peritoneum was then entered. The vesicouterine peritoneum was identified, was tented and excised to create a bladder flap. The bladder blade was placed to retract back the bladder. A curvilinear incision was then made in the lower uterine segment. The head was then delivered through the incision atraumatically, followed by delivery of shoulders and corpus. There was nuchal cord, which was manually reduced. The cord was then clamped times two and was cut. The was taken over to the warmer where Dr. Kan, the semi conductor assembler awaited. Cord gases and blood was obtained. The placenta was then delivered grossly intact. The uterus was then exteriorized and cleared of all clots and debris. The uterine incision was closed in two layers using #0 Vicryl first layer in a running locking fashion, followed by a second layer for imbrication in a running nonlocking fashion. A figure of eight stitch was placed for hemostasis. The abdomen was then suctioned. The uterus was returned in the patient's abdomen, was reinspected and noted to be hemostatic. The anterior peritoneum was then reapproximated using #3-0 Vicryl. The rectus muscles were then reapproximated using #3-0 Vicryl. The fascia was then closed using #0 Vicryl in a running nonlocking fashion. The subcutaneous tissue was then irrigated and suctioned. Subcutaneous tissue was then reapproximated using #3-0 Vicryl. Several subdermal stitches were placed of #3-0 Vicryl and the skin was closed with #4-0 Monocryl in a subcuticular fashion. The incision was then cleaned and dry. Mastisol was applied above and below the incision. Steri-Strips were applied over the incision, then the incision was dressed. The patient was then taken to recovery in stable condition. Counts were correct. The couple has decided to name their son René Douglas. [facility]
[2017-01-20] MEDS: KETOROLAC 30 MG/ML VIAL (J1885) IV SCH ×3 (11:55→23:45)
[2017-01-20] MEDS: LR 1,000 ML IV SCH ×2 (11:56→13:38)
[2017-01-21 01:52] VITALS: BP 106/57
[2017-01-21] MEDS: KETOROLAC 30 MG/ML VIAL (J1885) IV SCH (06:15)
[2017-01-21 06:20] VITALS: BP 112/64
[2017-01-21 06:30] LABS: MEAN CORPUSCULAR HEMOGLOBIN 32.9 pg (27.0-33.0); MEAN CORPUSCULAR HGB CONC 33.9 g/dl (32.0-36.5); MEAN CORPUSCULAR VOLUME 97.1 fl (80.0-96.0); PLATELET COUNT, AUTOMATED 132 10^3/uL (150-450); RED CELL DISTRIBUTION WIDTH 13.4 % (11.5-14.5); WHITE BLOOD COUNT 11.1 10^3/uL (4.0-10.0)
[2017-01-21] MEDS: LR 1,000 ML IV SCH (07:16)
[2017-01-21] MEDS: PRENATAL VITAMINS CHEWABLE TABLET PO SCH (07:42)
[2017-01-21] MEDS: PERCOCET 5MG/325MG TAB PO PRN ×3 (07:42→20:39)
[2017-01-21] MEDS ORDERED: SIMETHICONE 80 MG CHEW TAB PO PRN (08:30)
[2017-01-21] MEDS: FERROUS SULFATE 325MG TAB PO SCH ×2 (08:32→20:41)
[2017-01-21] MEDS: IBUPROFEN 800 MG TAB PO SCH ×2 (12:57→20:40)
[2017-01-21] MEDS: DOCUSATE SODIUM 100 MG CAP PO PRN (16:06)
[2017-01-21 17:56] VITALS: BP 121/72
[2017-01-21 22:11] VITALS: BP 102/58
[2017-01-22] MEDS: PERCOCET 5MG/325MG TAB PO PRN ×3 (01:43→13:52)
[2017-01-22] MEDS: IBUPROFEN 800 MG TAB PO SCH ×3 (05:49→21:06)
[2017-01-22 06:00] VITALS: BP 110/63
[2017-01-22] MEDS: FERROUS SULFATE 325MG TAB PO SCH ×2 (08:24→21:06)
[2017-01-22] MEDS: PRENATAL VITAMINS CHEWABLE TABLET PO SCH (08:24)
[2017-01-22 18:00] VITALS: BP 123/75
[2017-01-22] MEDS: DOCUSATE SODIUM 100 MG CAP PO PRN (21:06)
[2017-01-23 06:10] VITALS: BP 119/76
[2017-01-23] MEDS: IBUPROFEN 800 MG TAB PO SCH ×2 (06:14→14:52)
[2017-01-23] MEDS: FERROUS SULFATE 325MG TAB PO SCH (10:31)
[2017-01-23] MEDS: PRENATAL VITAMINS CHEWABLE TABLET PO SCH (10:32)
[2017-01-23] MEDS: PERCOCET 5MG/325MG TAB PO PRN (10:33)
--- NOTE | 2017-01-24 08:05 | DSES ---
DATE OF ADMISSION: 01/19/2017 DATE OF DISCHARGE: 01/23/2017 26-year-old 2, para 0-0-1-0, female at 39-0/7 weeks gestation, presents for scheduled induction of labor. Her course was unremarkable. HOSPITAL COURSE: The patient was admitted on 01/19/2017, for induction. She had cervical ripening with misoprostol. She made slow progress in labor. She advanced to second stage and pushed for nearly 3 hours. She was diagnosed with arrest of descent. On 01/20/2017, she underwent primary low transverse section for a 6 pound 3 ounce male . The procedure was uncomplicated. The postoperative course was unremarkable. She had adequate return of bladder and bowel function. She was deemed stable for discharge on postoperative day #3. She was anemic with a hemoglobin of 8.0 grams/dL. ADMISSION DIAGNOSIS: at 39 weeks, induction. DISCHARGE DIAGNOSIS: Delivered. PROCEDURE: Primary low transverse section. DISPOSITION: The patient will followup with Dr. Lamb in 2 weeks. Instructions were reviewed. DEVENDRA
== END 2017-01-23 18:45 | disposition home or self-care (01) | DRG 766 ==
LOC: M LDI 06:00 → M OBS 01-20 07:22
PROVIDERS: ADMIT Obstetrics & Gynecology; ATTEND Obstetrics & Gynecology
PROC: 10D00Z1 Extraction of Products of Conception, Low, Open Approach (ICD-10-PCS; principal; 2017-01-19)
PROC: 3E0DXGC Introduction of Other Therapeutic Substance into Mouth and Pharynx, External Approach (ICD-10-PCS; 2017-01-19)
DX: O32.4XX0 Maternal care for high head at term, not applicable or unspecified (principal); Z37.0 Single live birth; Z3A.39 39 weeks gestation of pregnancy

== ENCOUNTER 2017-04-26 10:02 | Emergency (ER) | payer OTHER ==
[2017-04-26] MEDS: NORCO, ANEXSIA 5/325MG TABLET (HYDROcodone/ACETAMINOPHEN) PO (12:00)
== END 2017-04-26 12:10 | disposition home or self-care (01) ==
LOC: M ED 10:02
DX: S67.190A Crushing injury of right index finger, initial encounter (principal); W23.0XXA Caught, crushed, jammed, or pinched between moving objects, initial encounter; Y92.009 Unspecified place in unspecified non-institutional (private) residence as the place of occurrence of the external cause
CPT/HCPCS: 73130

== ENCOUNTER 2018-03-12 05:38 | Day surgery (SDC) | payer OTHER ==
[~2018-03-12] VITALS: Ht 157.5 cm; Wt 62.5 kg
[~2018-03-12 05:38] MED LIST changes: +BALANCE PO; +COLA100C5 PO; +IBUP1TAB7 PO; +NORCOTAB PO; +PERCOCET PO; +TRAM50TA2 PO; +TUSS1SUS2 PO; -TUSSSUS6 PO; +ZOFR4TAB14 PO; -ZOFR4TAB3 PO
[2018-03-12 06:00] LABS: HEMOGLOBIN 14.4 g/dl (12.0-15.5)
[2018-03-12] MEDS ORDERED: LR 1,000 ML IV ONE (06:00)
[2018-03-12 06:18] LABS: HCG, SERUM QUALITATIVE NEGATIVE (NEGATIVE)
[2018-03-12] MEDS ORDERED: BUPIVACAINE HCL 0.25% 30 ML VIAL As Ordered ONE (06:38)
[2018-03-12] MEDS ORDERED: ROCURONIUM BROMIDE 50 MG/5 ML VIAL As Ordered ONE (07:14)
[2018-03-12] MEDS ORDERED: PROPOFOL 200 MG/20 ML VIAL As Ordered ONE (07:15)
[2018-03-12] MEDS ORDERED: LIDOCAINE 2% INJ 100 MG/5 ML SDV (FOR ANES.) As Ordered ONE (07:15)
[2018-03-12] MEDS ORDERED: fentaNYL 100 MCG/2 ML INJECTION (J3010) As Ordered ONE ×3 (07:15→08:38)
[2018-03-12] MEDS ORDERED: MIDAZOLAM INJ 2 MG/2 ML VIAL (J2250) As Ordered ONE (07:15)
[2018-03-12] MEDS ORDERED: dexameTHASONE 4 MG/ML 1ML VIAL (J1100) As Ordered ONE (07:58)
[2018-03-12] MEDS ORDERED: PHENYLephrine HCL 500 MCG/5 ML (100MCG/ML) SYRINGE (J2370) As Ordered ONE (07:59)
[2018-03-12] MEDS ORDERED: ONDANSETRON 4MG/2ML VIAL (J2405) As Ordered ONE (08:24)
[2018-03-12] MEDS ORDERED: NEOSTIGMINE 10 MG/10 ML VIAL (J2710) As Ordered ONE (08:25)
[2018-03-12] MEDS ORDERED: GLYCOPYRROLATE INJ 0.2 MG/ML 2 ML VIAL As Ordered ONE (08:26)
[2018-03-12] MEDS ORDERED: KETOROLAC 60 MG/2 ML VIAL (J1885) As Ordered ONE (08:27)
[2018-03-12] MEDS ORDERED: SILVER NITRATE APPLICATOR As Ordered ONE ×2 (08:29→08:40)
[2018-03-12] MEDS: PERCOCET 5MG/325MG TAB PO PRN ×2 (08:55→09:25)
[2018-03-12] MEDS ORDERED: PERCOCET 5MG/325MG TAB As Ordered ONE (08:55)
[2018-03-12] MEDS ORDERED: LR 1,000 ML IV SCH (09:15)
[2018-03-12] MEDS ORDERED: ONDANSETRON 4MG/2ML VIAL (J2405) IV PRN (09:15)
[2018-03-12] MEDS ORDERED: fentaNYL 100 MCG/2 ML INJECTION (J3010) IV PRN (09:15)
[2018-03-12 09:40] VITALS: BP 111/68
--- NOTE | 2018-03-12 17:17 | RO ---
DATE OF PROCEDURE: 03/12/2018 PREOPERATIVE DIAGNOSIS: Pelvic pain. POSTOPERATIVE DIAGNOSIS: Pelvic pain. OPERATION PERFORMED: Diagnostic laparoscopy. SURGEON: Dr. Carolyn Negrete DINKEY OPERATOR: Dr. Rafael Rodriguez CLINICAL SERVICE: Gynecology ANESTHESIA: INDICATIONS FOR OPERATION: Asmita is a 28-year-old 2, para 1-0-1-1 with a history of ongoing dysmenorrhea and dyspareunia that are worsening recently. She does have a history of prior diagnosis of endometriosis that was made via laparoscopy. She was even told she might not be able to have children based on the diagnosis but did indeed conceive, and she has a 1-year-old child. But given that she had worsening symptoms and a history of laparoscopy diagnosed endometriosis, we made the decision to proceed with another laparoscopy procedure to see if her endometriosis was still present or worsening in any way, if there were adhesions present. MATERIAL FORWARDED TO THE LAB: None. DESCRIPTION OF FINDINGS: Uterus sounded to 8 cm. Laparoscopic findings included a normal appearing uterus, fallopian tubes, ovaries, liver edge and inferior edge of the gallbladder. The appendix was surgically absent. There was no evidence of any endometriosis, maybe some small dilated pelvic vessels, but it was not significant enough to make a diagnosis of pelvic congestion syndrome. But there was no evidence of any macroscopic endometriosis, no adhesions, no powder burn lesions, or cyst on the ovaries. Everything was normal in appearance. INFECTION CLASSIFICATION: II ESTIMATED BLOOD LOSS: 5 mL. URINE OUTPUT: 150 mL IV FLUIDS: 700 mL of lactated Ringer. DESCRIPTION OF OPERATION: After obtaining informed consent, the patient was taken to the operating room. General endotracheal anesthesia was established, and she was placed in a low lithotomy position. The patient was prepped and draped in the usual sterile fashion, placed in Trendelenburg position. Mcduffie catheter was placed. [place] speculum was placed in the vagina and visualization of the cervix was obtained. Anterior lip of the cervix was grasped after sounding the uterus to 8 cm. The [employer] uterine manipulator was placed through the cervix to the uterus. [place] speculum was removed. The patient was taken out of Trendelenburg position and a 5 mm incision was made in the infraumbilical fold beneath the subcutaneous tissue after anesthetizing with 0.25% Marcaine. Sejal clamp was used to spread the subcutaneous tissue. Lower abdominal wall was manually grabbed and lifted up and an Optiview trocar was placed at a 90 degree angle. Laparoscope was advanced through the port and intra-abdominal placement was confirmed. Continuous low carbon dioxide began to establish pneumoperitoneum at 15 mmHg pressure. Observation below the point of entry revealed no evidence of injury. At that point, we did a pelvic survey which was sufficient to show all of the peritoneal surfaces. The bladder was normal in appearance. The anterior portion of the uterus was normal in appearance. The posterior cul-de-sac was normal in appearance as well as the uterus itself, the bilateral fallopian tubes, round ligaments, broad ligaments and ovaries. All of the peritoneal surfaces were shiny and healthy appearing. There was no evidence of any endometriosis lesions. Below the uterus, there were some slightly prominent vessels but nothing significant enough to say that she had pelvic congestion syndrome. Appendix was surgically absent and the liver edge and inferior pole of the gallbladder were normal in appearance as well. At this point, given that we were able to observe everything very well, and we found no evidence of any adhesions or anything that needed to be addressed, we then concluded the procedure. The pneumoperitoneum was released prior to removal of the umbilical port, and the incision was approximated with #4-0 Monocryl and Dermabond. All instruments were removed from the vagina. The [place] tenaculum site had some slight oozing, so silver nitrate was applied and hemostasis was then noted in entirety. All counts were correct times two, and the patient tolerated the procedure well. She was awakened from general anesthesia and taken to the recovery room in good condition.
== END 2018-03-12 11:12 | disposition home or self-care (01) ==
LOC: M SDC 05:38
PROVIDERS: ATTEND Obstetrics & Gynecology
DX: R10.9 Unspecified abdominal pain (principal); N94.10 Unspecified dyspareunia
CPT/HCPCS: 36415; 49320; 84703; 85014; 85018; 86850; 86900; 86901; J1100; J1885; J2250; J2370; J2405; J2710; J3010

== ENCOUNTER → 2018-06-30 | Outpatient (REF) | payer OTHER ==
[~2018-06-30] MED LIST changes: +HYDR-3715 PO; -NORCOTAB PO
== END ==
LOC: M SFHCLERA 11:38
PROVIDERS: ATTEND Nurse Practitioner Family
DX: J02.9 Acute pharyngitis, unspecified (principal)

== ENCOUNTER → 2018-09-19 | Outpatient (CLI) | payer OTHER ==
--- NOTE | 2018-09-19 17:31 | REP ---
REASON: Back pain. COMPARISON: None. FINDINGS: Five views of the lumbosacral spine show no acute fracture, dislocation or subluxation. The intervertebral disc spaces are symmetric and well maintained. There is no spondylolysis or spondylolisthesis. The pedicles are intact bilaterally and there is no destructive osseous lesion. IMPRESSION: Unremarkable lumbosacral spine series. Electronically Signed by Samy Solorio DO 09/19/2018 06:03 P
== END ==
LOC: M WUC 14:23
PROVIDERS: ATTEND Physician Assistant
DX: M54.5 Low back pain (principal)

== ENCOUNTER 2020-02-12 11:55 | Day surgery (SDC) | payer OTHER ==
[~2020-02-12] VITALS: Ht 162.6 cm; Wt 55.3 kg
[~2020-02-12 11:55] MED LIST changes: +ACET1TAB55; +KETOROLAC 60MG 2ML VIAL As Ordered ONE; +LIDOCAINE 2% 100MG/5ML SDV (FOR ANES.) As Ordered ONE; +MIDAZOLAM INJ 2MG/2ML VIAL (J2250 PER 1MG) As Ordered ONE; +ONDANSETRON 4MG/2ML VIAL As Ordered ONE; +PREN27TA3; +dexameTHASONE 4 MG/ML 1ML VIAL (J1100 PER 1MG) As Ordered ONE; +fentaNYL 100 MCG/2 ML INJECTION (J3010) As Ordered ONE; +propofoL 200 MG/20 ML VIAL As Ordered ONE
[2020-02-12 12:21] LABS: HEMATOCRIT 40.8 % (36.0-47.0); HEMOGLOBIN 13.7 g/dl (12.0-15.5); MEAN CORPUSCULAR HGB CONC 33.6 g/dl (32.0-36.5); MEAN CORPUSCULAR VOLUME 92.3 fl (80.0-96.0); PLATELET COUNT, AUTOMATED 238 10^3/uL (150-450); RED BLOOD COUNT 4.42 10^6/uL (4.00-5.40); WHITE BLOOD COUNT 5.5 10^3/uL (4.0-10.0)
[2020-02-12] MEDS ORDERED: DOXYCYCLINE HYCLATE 100MG TABLET As Ordered ONE (12:54)
[2020-02-12] MEDS ORDERED: DOXYCYCLINE HYCLATE 100MG TABLET PO ONE ×3 (13:43→15:00)
[2020-02-12] MEDS ORDERED: METOCLOPRAMIDE INJ 10MG/2ML VIAL (J2765 PER 1) As Ordered ONE (14:03)
[2020-02-12] MEDS ORDERED: oxyCODONE 5MG TAB PO PRN (14:30)
[2020-02-12] MEDS ORDERED: LR 1,000 ML IV SCH (14:30)
[2020-02-12] MEDS ORDERED: ONDANSETRON 4MG/2ML VIAL IV PRN (14:30)
[2020-02-12] MEDS ORDERED: fentaNYL 100 MCG/2 ML INJECTION (J3010) IV PRN (14:30)
[2020-02-12 15:55] VITALS: BP 113/66
--- NOTE | 2020-02-12 17:58 | RO ---
OPERATIVE NOTE DATE OF OPERATION: 02/12/2020 PREOPERATIVE DIAGNOSIS: Missed . POSTOPERATIVE DIAGNOSIS: Missed . PROCEDURE: Suction dilation and curettage. SURGEON: Rafael Rodriguez DO DIGITAL IMAGER: Lenard jensen. ANESTHESIA: General. IV FLUIDS: 600 mL LR. URINE OUTPUT: 20 mL via straight catheter. ESTIMATED BLOOD LOSS: 20 mL ANTIBIOTICS: 100 mg doxycycline before case start and 200 mg doxycycline in the PACU. COMPLICATIONS: None. DETAILED PROCEDURE DESCRIPTION: The risks, benefits, indications and alternatives of the procedure were reviewed with the patient and informed consent was obtained. The patient was taken to the operating room where general anesthesia was obtained without difficulty. The patient was then placed in the low lithotomy position. An exam under anesthesia was then performed and was significant for a midline mobile 8 week sized anteverted uterus. The patient was then prepped and draped in the usual sterile fashion and the bladder was drained using an in and out catheter. A sterile speculum was then placed into the patient's vagina and the cervix was visualized. A single toothed tenaculum was then used to grasp the anterior lip of the cervix. The cervix was then gently, serially dilated to a size 16 [place] with a Apollo dilator. A 7 mm curved suction catheter was then introduced into the uterine cavity and gently advanced to the uterine fundus. The suction device was then activated to 60 mmHg and the catheter was rotated to clear the uterus of products of conception. Three passes were performed with a moderate amount of tissue obtained. A gentle sharp curettage was then performed until a uterine cri was noted in all planes. A few more passes of the suction catheter were then performed and minimal tissue was obtained. All tissue obtained was sent to pathology for review. The single toothed tenaculum was then removed from the anterior lip of the cervix. The tenaculum sites were made hemostatic using pressure with a sponge stick. Inspection of the cervical os revealed hemostasis. All instruments were then removed from the patient's vagina. The patient tolerated the procedure well. At the completion of the case the sponge, instrument, and needle counts were correct times two. The patient was then taken to the recovery room in stable condition. [facility]
[2020-02-12] MEDS ORDERED: KETOROLAC 30 MG/ML 1ML VIAL IV ONE (22:00)
== END 2020-02-12 16:00 | disposition home or self-care (01) ==
LOC: M SDC 11:55
PROVIDERS: ATTEND Obstetrics & Gynecology
DX: O02.1 Missed abortion (principal); R32 Unspecified urinary incontinence
CPT/HCPCS: 36415; 59820; 85027; 88305; J1100; J1885; J2250; J2405; J2765; J3010

== ENCOUNTER → 2020-10-19 | Outpatient (CLI) | payer OTHER ==
[~2020-10-19] MED LIST changes: -KETOROLAC 60MG 2ML VIAL As Ordered ONE; -LIDOCAINE 2% 100MG/5ML SDV (FOR ANES.) As Ordered ONE; -MIDAZOLAM INJ 2MG/2ML VIAL (J2250 PER 1MG) As Ordered ONE; -ONDANSETRON 4MG/2ML VIAL As Ordered ONE; -dexameTHASONE 4 MG/ML 1ML VIAL (J1100 PER 1MG) As Ordered ONE; -fentaNYL 100 MCG/2 ML INJECTION (J3010) As Ordered ONE; -propofoL 200 MG/20 ML VIAL As Ordered ONE
--- NOTE | 2020-10-19 08:40 | REP ---
INDICATION: PAIN COMPARISON: None. TECHNIQUE: AP and lateral right forearm. FINDINGS: The osseous structures and joint spaces are intact and normal. There is no evidence for acute fracture or dislocation. Surrounding soft tissues are unremarkable. No subcutaneous emphysema or radiodense foreign body. IMPRESSION: . No acute fracture or dislocation. <Electronically signed by Mansoor Lopez > 10/19/20 [id number]
== END ==
LOC: M WUC 08:26
PROVIDERS: ATTEND Physician Assistant Medical
DX: M79.631 Pain in right forearm (principal)